=== PATIENT | male | born 1970 ===

== ENCOUNTER 2023-04-25 07:56 | Day surgery (SDC) | payer OTHER ==
[~2023-04-25] VITALS: Ht 185.4 cm; Wt 127.0 kg
[2023-04-25] MEDS ORDERED: fentaNYL citrate 0.05 MG/ML VIAL ONE (10:05)
[2023-04-25] MEDS ORDERED: LIDOCAINE 2% 100 MG/5 ML UJET TP ONE (10:05)
[2023-04-25] MEDS ORDERED: fentaNYL citrate 0.05 MG/ML VIAL IVP ONE (12:20)
== END 2023-04-25 11:14 | disposition home or self-care (01) ==
LOC: MMU 07:56 → MDS 07:56
PROVIDERS: ATTEND Internal Medicine Gastroenterology
DX: Z12.11 Encounter for screening for malignant neoplasm of colon (principal); K57.30 Diverticulosis of large intestine without perforation or abscess without bleeding; I10 Essential (primary) hypertension; E11.9 Type 2 diabetes mellitus without complications; E78.00 Pure hypercholesterolemia, unspecified; Z88.5 Allergy status to narcotic agent; Z79.4 Long term (current) use of insulin; Z79.899 Other long term (current) drug therapy; Z89.412 Acquired absence of left great toe
CPT/HCPCS: 45378; J3010